=== PATIENT | female | born 1990 | race Caucasian/White ===

== ENCOUNTER 2017-03-30 00:05 | Emergency (ER) | payer MEDICAID ==
[~2017-03-30] VITALS: Ht 165.1 cm; Wt 52.2 kg
[2017-03-30 00:18] VITALS: BP 11/78
[2017-03-30] MEDS ORDERED: LIDOCAINE/EPI 1% 1:100000 20 ML VIAL INJ ONE (02:30)
[2017-03-30] MEDS ORDERED: BACITRACIN OINT 500 UNITS/GM PKT TP ONE (02:30)
[2017-03-30] MEDS ORDERED: LIDOCAINE/EPI 2% 1:100000 20 ML VIAL INJ ONE (02:34)
[2017-03-30 04:13] VITALS: BP 119/76
== END 2017-03-30 04:13 | disposition home or self-care (01) ==
LOC: MED 00:05
DX: S61.215A Laceration without foreign body of left ring finger without damage to nail, initial encounter (principal); W45.8XXA Other foreign body or object entering through skin, initial encounter; Y93.89 Activity, other specified; Y92.89 Other specified places as the place of occurrence of the external cause; Y99.8 Other external cause status
CPT/HCPCS: 12001; 90471; 90715; 99283; J2001

== ENCOUNTER 2017-04-04 08:38 | Emergency (ER) | payer MEDICAID ==
[~2017-04-04] VITALS: Ht 165.1 cm; Wt 47.3 kg
[2017-04-04 08:43] VITALS: BP 119/82
--- NOTE | 2017-04-04 08:54 | NUR ---
Patient ambulated to bed 6. RN evaluating patient at bedside.
--- NOTE | 2017-04-04 08:57 | NUR ---
Dr. Huntley evaluating patient at bedside.
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
--- NOTE | 2017-04-04 09:07 | NUR ---
Dr. Huntley at bedside for pelvic exam. Accompanied by nurse
--- NOTE | 2017-04-04 09:13 | NUR ---
Pelvic exam performed by Dr. Huntley with myself at bedside for entire examination. Patient tolerated procedure well. Specimens collected and sent to lab. Patient assisted to position of comfort after examination.
--- NOTE | 2017-04-04 09:17 | NUR ---
Lab at bedside for blood draw.
[2017-04-04 09:54] VITALS: BP 128/81
--- NOTE | 2017-04-04 09:54 | NUR ---
Chart checked and completed. The patient's care was reviewed and supervised by Mick Klein RN.
--- NOTE | 2017-04-04 09:54 | NUR ---
Patient discharged with v/s stable. Written and verbal after care instructions given and explained. Patient alert, oriented and verbalized understanding of instructions. Ambulatory with to home. All questions addressed prior to discharge. ID band removed. Patient advised to follow up with PMD. Rx of valtrex given. Patient educated on indication of medication including possible reaction and side effects. Opportunity to ask questions provided and answered.
[2017-04-06 08:05] LABS: CHLAMYDIA TRACHOMATIS AMP DNA NEGATIVE (NEGATIVE)
== END 2017-04-04 09:54 | disposition home or self-care (01) ==
LOC: MED 08:38
DX: B00.9 Herpesviral infection, unspecified (principal); F11.90 Opioid use, unspecified, uncomplicated
CPT/HCPCS: 36415; 81002; 81025; 86702; 86704; 86706; 86708; 86709; 86803; 87210; 87340; 87491; 99284